=== PATIENT | male | born 1970 ===

== ENCOUNTER 2021-08-15 12:30 | Outpatient (RCR) | payer MEDICARE, MEDICAID, SELFPAY ==
--- NOTE | 2021-08-08 16:30 | PTOPEVAL ---
PHYSICAL THERAPY EVALUATION AND PLAN OF CARE 08-08-21 Thank you for referring Virgilio Siu to [facility].? He is scheduled to be seen for therapy? 3 x/week for 5 weeks. Please review, sign, date and return this plan of care KIERRA. I agree with and certify that the following plan of care is medically necessary. Referring Physician Date Attending Provider: Alfredo Reyes, PT Outpatient Evaluation Start: 08/08/21 15:04 Document 08/08/21 14:50 DIVINA (Rec: 08/08/21 16:29 DIVINA [id number]) Outpatient Past Medical History Past Medical History Source of Past Medical History Patient Neurological History Hx Neurological Disorders No Significant History Cardiovascular History Hx Congestive Heart Failure Yes: previous issues with, now resolved Hx Hypercholesterolemia Yes: meds Hx Hypertension Yes: meds Hx Other Cardiac Disorders Yes: low potassium Respiratory History Hx Respiratory Disorders No Significant History Gastrointestinal History Hx Gastrointestinal Disorders No Significant History Genitourinary History Hx Genitourinary Disorders No Significant History Musculoskeletal History Hx Other Musculoskeletal Disorders Yes: leg and knee pain; weight ~ 395# per pt Hematological History Hx Hematological Disorders No Significant History Endocrine History Hx Diabetes Yes: meds control Hx Hypothyroidism Yes: on meds HEENT History Hx Other HEENT Disorders Yes: wear glasses Other History Hx Other Medical Conditions Yes: have not had COVID vaccine; low level of red blood cells-on med Evaluation Information Problem Diagnosis B LE lymphedema Onset Oct 2019 Prior Level of Function Activity Level (Last 3 Months) Occupation not working outside of home Stairs Ability Independent Cooking Yes Cleaning Yes Laundry Yes Shopping Yes Driving No Home Setting Home Type House Environmental Barriers Railing, Bilateral,Stairs, Greater than 4 Living Situation With Relatives Mobility Assistive Devices (Used Last 3 None Months) Comments Additional Prior Level of Function live with brother; pt does OK Comments on stairs brother assist with dressing with shoes, socks and wraps on legs; brother assist with shopping, cooking, cleaning home;
--- NOTE | 2021-08-15 07:44 | PCPTNOTE ---
late note from 08/13/21 : pt called and cancelled 30 minutes prior to appt. due to construction on his road, the bus could not make it down to pick him up.
--- NOTE | 2021-08-18 10:35 | PCPTNOTE ---
Pt canceled appt today. per sec; for personal reasons.
--- NOTE | 2021-08-27 11:44 | PCPTNOTE ---
pt called and canceled appointments for yesterday and tomorrow: 08-26 and 08-28, due to being in the hospital. Reports he got dizzy and weak, went to hospital.
--- NOTE | 2021-08-29 11:50 | PCPTNOTE ---
Called pt's phone number, left voicemail to check on pt since he called last week stating he was in the hospital and needed to cancel. Also reminded pt that if he can make his appointment on Wednesday, he would need a new order and if not, to please call and cancel.
--- NOTE | 2021-09-01 12:50 | PCPTNOTE ---
Pt no show no call for today's appt. Sectary Hao garza attempted to call pt today to see if he was out of the hospital and would be here today. Pt did not return call.
--- NOTE | 2021-09-03 12:45 | PCPTNOTE ---
Patient did not show up for scheduled appointment this date.
--- NOTE | 2021-09-03 16:14 | PCPTNOTE ---
called pt and left a voice mail message taht remaining appt were canceled due to him not showing for therapy. He will require a new order to continue PT treatment.
--- NOTE | 2021-09-19 13:48 | PCPTNOTE ---
PHYSICAL THERAPY DISCHARGE 09-19-21 Attending Provider: Alfredo Reyes MD Patient:Virgilio Siu Date of :1970 Virgilio has not returned for any further treatments since 08/15/2021, therefore he will be discharged at this time. He had the PT evaluation and one treatment session, then canceled due to hospitalization. The goals were not assessed. Thank you for referring Mr. Siu to [facility]. Please review, sign, date and return this discharge summary KIERRA. I have been updated about the patient's current status and I agree with discharge from the above service at this time. Referring Physician Date
== END 2021-09-22 08:14 | disposition home or self-care (01) ==
LOC: ANHPT 12:30
PROVIDERS: PCP Internal Medicine; Visit Provider Internal Medicine
DX: I89.0 Lymphedema, not elsewhere classified (principal)
CPT/HCPCS: 97016; 97140; 97162